=== PATIENT | female | born 1965 | race African-American/Black ===

== ENCOUNTER 2018-05-24 13:33 | Inpatient (IN) | payer MEDICARE, MEDICAID ==
[~2018-05-24] VITALS: Ht 162.6 cm; Wt 64.9 kg
--- NOTE | ~2018-05-24 | EC ---
PATIENT:LAITH STEARNS DATE OF SERVICE: 05/24/18 SEX: F MEDICAL RECORD: [id number] DATE OF : 67 LOCATION:D.[id number] AGE OF PATIENT: 52 ADMISSION DATE: 05/24/18 REFERRING PHYSICIAN: INTERPRETING PHYSICIAN: WALLY SALCEDO MD ECHOCARDIOGRAM REPORT ECHO CHARGES 4 ECHO COMPLETE Date: 05/26/18 CLINICAL DIAGNOSIS: ASSESS FOR SBE ECHOCARDIOGRAPHIC MEASUREMENTS (adult normal given) AC root (d.<3.7cm) 3.1 cm LV Septum d (<1.2 cm> 1.8 cm Valve Excursion 1.0 cm LV Septum (systole) 2.1 cm Left Atria (s.<4.0cm> 4.4 cm LVPW d(<1.2cm) 1.7 cm RV (d.<2.3cm) 4.5 cm LVPW (sytole) 1.9 cm LV diastole(<5.6CM) 5.6 cm MV E-F(>70mm/sec) cm LV systole 3.3 cm LVOT Diameter 2.0 cm MV exc.(>10mm) 1.6 cm Est.ejection fraction (50-75%) % DOPPLER: LVIT cm/sec A 89.0 cm/sec E 155 cm/sec LA cm/sec RVSP 51 mmHg LVOT 138 cm/sec AOP1/2T m/s Asc. Ao 257 cm/sec RVOT 107 cm/sec RA cm/sec PA 197 cm/sec AV Gradient Peak 26.41mmHg AV Mean 15.11mmHg AV Area 1.8 cm MV Gradient Peak 15.50mmHg MV Mean 5.46 mmHg MV Area cm COMMENTS: Puzzle Assembler: Reagan CORRIGAN Health Information Tech: 1 Dr. Salcedo TAPE# PACS Pericardial Effusion N DATE OF SERVICE: 05/26/2018 ECHOCARDIOGRAM FINDINGS: 1. Left ventricular chamber size is within normal limits. Left ventricular systolic function is normal. Overall ejection fraction estimated at 55% to 60%. 2. Left atrium is enlarged at 4.4 cm. Right atrium and right ventricular chamber sizes are mildly dilated. 3. 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 The tricuspid valve is as well replaced with a prosthesis that appears to be a tissue valve with normal structure and function in this position. 4. Aortic valve demonstrates mild calcific aortic stenosis, valve area calculates 1.8 cm-squared, gradient of 26 mm across the valve. 5. Doppler interrogation reveals elsewise mild mitral regurgitation, moderate tricuspid regurgitation, no other valvular insufficiency or stenosis. Pulmonary systolic pressure is estimated at 51 mmHg. 6. There is an echogenic structure in the right atrium. This appears to be a central line, appears to have a large thrombus burden on the catheter itself. 7. No evidence of pericardial effusion or left ventricular thrombus. TRANSINT:[id number] Voice Confirmation ID: [id number] DOCUMENT ID: [id number] WALLY SALCEDO MD at 1950 CC: [id number] DICTATION DATE: 05/26/18 1616 PILOT CAN ROUTER: 05/26/18 1714 ADM IN [facility] [address] [id number]
--- NOTE | ~2018-05-24 | OP ---
PATIENT NAME: LAITH SALAS MEDICAL RECORD: [id number] :67 LOCATION:D.M2 [id number] ADMISSION DATE:05/24/18 SURGEON: JAZIEL CHOWDHURY MD DATE OF OPERATION: 05/25/2018 She was an inpatient when she was operated on 05/25/2018. This is dictated on 05/30/2018. REFERRING PHYSICIAN: Dr. Crawford PREOPERATIVE DIAGNOSIS: Possibly infected dialysis access HeRO graft with possible infected pseudoaneurysm. ADDITIONAL DIAGNOSIS: Multiple central venous stenoses. OPERATION PERFORMED: Ultrasound-guided access via the left internal jugular vein and performance of a superior vena cavogram and insertion of an Arrow tunneled hemodialysis catheter into the right atrium. PREOPERATIVE NOTE: Ms. Salas is a 52-year-old female with end-stage renal disease, who has had a HeRO AV graft in the right upper extremity now for several years. She has recently been treated at various other hospitals for "infection and has complained for the last 2-3 weeks of pain and soreness along the course of her AV graft and about a week ago developed a mass in the region of the deltopectoral groove, which is not pulsatile but may represent a pseudoaneurysm. At any rate, the dialysis unit in [place] where she dialyzes was hesitant to use her graft after that and she was sent here. She actually presented via the Emergency Room more or less unannounced. Her HeRo graft seems to be patent, but there is great concern that it may be infected and so she is brought to the operating room to place a tunneled catheter to give us a safe dialysis access before further interventions. Under general anesthesia, the patient was prepped and draped in sterile manner. She was examined with ultrasound and I found the left internal jugular vein to be of normal caliber and fully compressible. No filling defects. I made an incision at the base of the neck and accessed the left internal jugular and under ultrasound guidance, I inserted a needle and then a guidewire into the left internal jugular vein. Because the patient has a HeRO graft on the right, which passes through the superior vena cava and into the right atrium and because she has a history of multiple central vein stenoses, I performed a superior vena cavogram. This revealed patency of the left internal jugular and brachial cephalic vein with near occlusion of the superior vena cava. I was able though then to pass a Glidewire alongside the HeRO graft and then to the right atrium and inferior vena cava. I chose a single access catheter, not a split catheter and this was inserted through a separate incision site and a subcutaneous tunnel and brought up to the cervical incision. Dilators were passed over the initial wire and subsequently a peel-away introducer and the catheter inserted. I found that I could not advance the catheter's suitable distance into the right atrium. I then used an Amplatz Super Stiff wire through a new catheter and with that in place was able to straighten the catheter and advance it into the right atrium into a good position. Both lumens of that catheter were then accessed and free return of blood confirmed. They were then heparin locked, clamped and capped and the cervical incision closed with interrupted inverted 3-0 Vicryl and the catheter sutured to the skin with 2-0 Prolene and sterile dressings applied. OPERATIVE REPORT [id number] LAITH SALAS TRANSINT:[id number] Voice Confirmation ID: [id number] DOCUMENT ID: [id number] JAZIEL CHOWDHURY MD at 1747 CC: [id number] DICTATION DATE: 05/30/18 1021 CYBER ANALYST: 05/30/18 1100 ADM IN [facility] [address] [place] [address]
[~2018-05-24 13:33] MED LIST: BYSTOLIC10 MG; BYSTOLIC10 MG PO; CATAPRES0.3 MG PO; HYDRALAZINE HCL25 MG PO; LEXAPRO10 MG; LEXAPRO10 MG PO; LONITEN2.5 MG PO; OMEPRAZOLE40 MG PO
[2018-05-24 16:39] LABS: BASOPHILS 0.7 % (0-2); HEMATOCRIT 28.9 % (36.0-48.0); LYMPHOCYTES 39.9 % (15-50); MCHC 31.1 g/dL (31.0-37.0); MCV 99.7 fL (80.0-100.0); MEAN PLATELET VOLUME 10.6 fL (7.4-10.4); MONOCYTES 4.6 % (2-11); NEUTROPHILS 51.8 % (40-80); PLATELET COUNT 71 10x3/uL (130-400); RDW 14.8 % (11.5-14.5)
[2018-05-24 16:45] LABS: INR 1.25 (0.85-1.17); PROTIME 15.2 SECONDS (11.6-15.0)
[2018-05-24 17:12] LABS: ALBUMIN 3.6 g/dL (3.4-5.0); ANION GAP 16.4 mmol/L (8-16); BILIRUBIN - TOTAL 1.03 mg/dL (0.2-1.3); CALCIUM 8.8 mg/dL (8.5-10.1); CREATININE - SERUM 11.1 mg/dL (0.6-1.3); POTASSIUM - SERUM 5.4 mmol/L (3.5-5.1); PROTEIN - SERUM 7.1 g/dL (6.4-8.2)
[2018-05-24 17:36] LABS: PLATELET ESTIMATE DECREASED
[2018-05-24 20:48] VITALS: BP 194/83; BMI 27.8
[2018-05-25 05:58] VITALS: BP 209/85
[2018-05-25 06:10] LABS: HEMOGLOBIN 8.3 g/dL (12-16); MCH 31.4 pg (26.0-34.0); MCHC 31.9 g/dL (31.0-37.0); MCV 98.5 fL (80.0-100.0); PLATELET COUNT 64 10x3/uL (130-400); RBC 2.64 10x6/uL (4.00-5.40); RDW 14.8 % (11.5-14.5); WBC 2.8 10x3/uL (4.8-10.8)
[2018-05-25 06:41] LABS: ANION GAP 14.8 mmol/L (8-16); BILIRUBIN - TOTAL 0.86 mg/dL (0.2-1.3); CALCIUM 8.3 mg/dL (8.5-10.1); CARBON DIOXIDE 26.3 mmol/L (21.0-32.0); CREATININE - SERUM 11.9 mg/dL (0.6-1.3); MAGNESIUM - SERUM 2.2 mg/dL (1.8-2.4); POTASSIUM - SERUM 5.1 mmol/L (3.5-5.1); PROTEIN - SERUM 6.3 g/dL (6.4-8.2)
[2018-05-25 07:53] LABS: EOSINOPHILS 9 % (0-7); LYMPHOCYTES 38 % (15-50); MONOCYTES 6 % (2-11); NEUTROPHILS 46 % (40-80); PLATELET ESTIMATE DECREASED
[2018-05-25 08:23] VITALS: BP 223/86
[2018-05-25 11:30] VITALS: BP 126/78
[2018-05-25 14:33] VITALS: BMI 27.8
[2018-05-25 15:30] VITALS: BP 237/97
[2018-05-25 18:48] VITALS: BP 182/83
[2018-05-26 05:14] VITALS: BP 169/74
[2018-05-26 09:30] VITALS: BP 186/71
[2018-05-26 12:34] VITALS: BP 159/79
[2018-05-26 18:35] VITALS: BP 157/76
[2018-05-26 21:05] VITALS: BP 182/77
[2018-05-27 05:07] VITALS: BP 176/66
[2018-05-27 06:01] LABS: % SATURATION 92 % (15-55); IRON 75 ug/dl (35-150); TOTAL IRON BIND CAPACITY 81 ug/dl (260-445)
[2018-05-27 06:07] LABS: UNSAT IRON BIND CAPACITY 6 ug/dl (150-375)
[2018-05-27 06:43] LABS: ALBUMIN 2.9 g/dL (3.4-5.0); BILIRUBIN - DIRECT 0.23 mg/dL (0.00-0.30); BILIRUBIN - INDIRECT 0.47 mg/dL (0.00-1.00); BILIRUBIN - TOTAL 0.7 mg/dL (0.2-1.3); PROTEIN - SERUM 6.3 g/dL (6.4-8.2)
[2018-05-27 08:44] VITALS: BP 186/84
[2018-05-27 12:00] LABS: HEMATOCRIT 23.8 % (36.0-48.0); HEMOGLOBIN 7.6 g/dL (12-16); MCH 31.5 pg (26.0-34.0); MCHC 31.9 g/dL (31.0-37.0); MCV 98.8 fL (80.0-100.0); MEAN PLATELET VOLUME 11.1 fL (7.4-10.4); RBC 2.41 10x6/uL (4.00-5.40); WBC 3.1 10x3/uL (4.8-10.8)
[2018-05-27 12:04] LABS: APTT 37.6 SECONDS (22.8-39.4); INR 1.15 (0.85-1.17); PROTIME 14.3 SECONDS (11.6-15.0)
[2018-05-27 18:09] VITALS: BP 131/106
[2018-05-27 21:15] VITALS: BP 124/100
[2018-05-28 00:54] VITALS: BP 138/84
[2018-05-28 05:04] VITALS: BP 148/56
[2018-05-28 07:11] LABS: BASOPHILS 0.3 % (0-2); EOSINOPHILS 4.8 % (0-7); HEMATOCRIT 26.7 % (36.0-48.0); HEMOGLOBIN 8.3 g/dL (12-16); MCH 30.7 pg (26.0-34.0); MCHC 31.1 g/dL (31.0-37.0); MCV 98.9 fL (80.0-100.0); MEAN PLATELET VOLUME 11.2 fL (7.4-10.4); MONOCYTES 9.7 % (2-11); NEUTROPHILS 49.2 % (40-80); PLATELET COUNT 65 10x3/uL (130-400); RDW 14.3 % (11.5-14.5); WBC 2.9 10x3/uL (4.8-10.8)
[2018-05-28 07:23] LABS: FOLATE (FOLIC ACID) - SERUM 5.3 ng/mL (>3.0)
[2018-05-28 07:26] LABS: ANION GAP 11.5 mmol/L (8-16); BILIRUBIN - TOTAL 0.76 mg/dL (0.2-1.3); CALCIUM 8.6 mg/dL (8.5-10.1); CARBON DIOXIDE 29.6 mmol/L (21.0-32.0); CREATININE - SERUM 7.4 mg/dL (0.6-1.3); POTASSIUM - SERUM 4.1 mmol/L (3.5-5.1); PROTEIN - SERUM 6.6 g/dL (6.4-8.2)
[2018-05-28 08:46] VITALS: BP 84/70
[2018-05-28 16:36] LABS: BASOPHILS 0.4 % (0-2); EOSINOPHILS 3.2 % (0-7); HEMATOCRIT 23.3 % (36.0-48.0); LYMPHOCYTES 32.3 % (15-50); MCHC 31.8 g/dL (31.0-37.0); MCV 97.5 fL (80.0-100.0); MEAN PLATELET VOLUME 10.9 fL (7.4-10.4); MONOCYTES 10.5 % (2-11); NEUTROPHILS 53.6 % (40-80); PLATELET COUNT 62 10x3/uL (130-400); RBC 2.39 10x6/uL (4.00-5.40); RDW 14.1 % (11.5-14.5); WBC 2.9 10x3/uL (4.8-10.8)
[2018-05-28 16:37] LABS: HEMOGLOBIN 7.4 g/dL (12-16)
[2018-05-28 16:38] VITALS: BP 179/74
[2018-05-28 16:57] LABS: ANION GAP 13.7 mmol/L (8-16); CALCIUM 8.5 mg/dL (8.5-10.1); CARBON DIOXIDE 28.3 mmol/L (21.0-32.0); CREATININE - SERUM 8.1 mg/dL (0.6-1.3)
[2018-05-28 18:09] LABS: BASOPHILS 0.3 % (0-2); EOSINOPHILS 3.1 % (0-7); HEMATOCRIT 22.3 % (36.0-48.0); LYMPHOCYTES 27.3 % (15-50); MCH 31.1 pg (26.0-34.0); MCHC 31.8 g/dL (31.0-37.0); MCV 97.8 fL (80.0-100.0); MEAN PLATELET VOLUME 9.1 fL (7.4-10.4); NEUTROPHILS 55.3 % (40-80); RBC 2.28 10x6/uL (4.00-5.40); RDW 14.1 % (11.5-14.5); WBC 2.9 10x3/uL (4.8-10.8)
[2018-05-28 18:33] LABS: ANION GAP 10.8 mmol/L (8-16); CALCIUM 8.6 mg/dL (8.5-10.1); CARBON DIOXIDE 30.2 mmol/L (21.0-32.0); CREATININE - SERUM 8.2 mg/dL (0.6-1.3); HEMOGLOBIN 7.1 g/dL (12-16); PLATELET COUNT 80 10x3/uL (130-400)
[2018-05-29] VITALS: BP 214/83
[2018-05-29 03:23] LABS: BASOPHILS 0.3 % (0-2); EOSINOPHILS 3.5 % (0-7); HEMATOCRIT 25.4 % (36.0-48.0); HEMOGLOBIN 8.2 g/dL (12-16); IMMATURE GRANULOCYTES 0.3 % (0-5); LYMPHOCYTES 32.3 % (15-50); MCH 30.4 pg (26.0-34.0); MCHC 32.3 g/dL (31.0-37.0); MEAN PLATELET VOLUME 9.5 fL (7.4-10.4); MONOCYTES 8.3 % (2-11); NEUTROPHILS 55.3 % (40-80); PLATELET COUNT 73 10x3/uL (130-400); RDW 17.4 % (11.5-14.5); WBC 3.1 10x3/uL (4.8-10.8)
[2018-05-29 03:25] LABS: MCV 94.1 fL (80.0-100.0)
[2018-05-29 03:37] LABS: ANION GAP 9.8 mmol/L (8-16); BILIRUBIN - TOTAL 1.2 mg/dL (0.2-1.3); CALCIUM 8.7 mg/dL (8.5-10.1); CREATININE - SERUM 8.8 mg/dL (0.6-1.3); POTASSIUM - SERUM 3.8 mmol/L (3.5-5.1); PROTEIN - SERUM 6.5 g/dL (6.4-8.2)
[2018-05-29 04:00] VITALS: BP 236/87
[2018-05-29 06:00] VITALS: BP 236/87
[2018-05-29 15:08] LABS: TRANSFERRIN 90 mg/dL (200-370)
[2018-05-29 20:00] VITALS: BP 227/94
[2018-05-30 00:07] VITALS: BP 215/61
[2018-05-30 04:00] VITALS: BP 216/70
[2018-05-30 04:41] LABS: BASOPHILS 0.3 % (0-2); EOSINOPHILS 6.3 % (0-7); HEMATOCRIT 25.5 % (36.0-48.0); HEMOGLOBIN 8.1 g/dL (12-16); IMMATURE GRANULOCYTES 0.3 % (0-5); LYMPHOCYTES 35.1 % (15-50); MCH 29.7 pg (26.0-34.0); MCHC 31.8 g/dL (31.0-37.0); MCV 93.4 fL (80.0-100.0); MONOCYTES 8.5 % (2-11); NEUTROPHILS 49.5 % (40-80); PLATELET COUNT 81 10x3/uL (130-400); RBC 2.73 10x6/uL (4.00-5.40); RDW 16.9 % (11.5-14.5); WBC 3.2 10x3/uL (4.8-10.8)
[2018-05-30 04:57] LABS: ALBUMIN 2.8 g/dL (3.4-5.0); BILIRUBIN - TOTAL 0.75 mg/dL (0.2-1.3); CALCIUM 8.5 mg/dL (8.5-10.1); CARBON DIOXIDE 28.9 mmol/L (21.0-32.0); CREATININE - SERUM 10.4 mg/dL (0.6-1.3); POTASSIUM - SERUM 3.9 mmol/L (3.5-5.1); PROTEIN - SERUM 6.3 g/dL (6.4-8.2)
[2018-05-30 09:21] VITALS: BP 226/110
[2018-05-30 16:35] VITALS: BP 182/73
[2018-05-30 16:58] VITALS: Ht 162.6 cm; Wt 64.9 kg
[2018-05-30 19:34] LABS: INR 1.06 (0.85-1.17); PROTIME 13.4 SECONDS (11.6-15.0)
[2018-05-30 20:00] VITALS: BP 182/73
[2018-05-31 00:04] VITALS: BP 173/50
[2018-05-31 03:11] LABS: HEP B CORE AB TOTAL Negative (Negative); HEPATITIS C ANTIBODY 0.1 (0.0-0.9)
[2018-05-31 04:00] VITALS: BP 175/72
[2018-05-31 04:52] LABS: BASOPHILS 0.3 % (0-2); EOSINOPHILS 6.3 % (0-7); HEMATOCRIT 23.5 % (36.0-48.0); HEMOGLOBIN 7.6 g/dL (12-16); LYMPHOCYTES 32.9 % (15-50); MCH 30.3 pg (26.0-34.0); MCHC 32.3 g/dL (31.0-37.0); MCV 93.6 fL (80.0-100.0); MEAN PLATELET VOLUME 10.9 fL (7.4-10.4); MONOCYTES 10.3 % (2-11); NEUTROPHILS 50.2 % (40-80); PLATELET COUNT 80 10x3/uL (130-400); RBC 2.51 10x6/uL (4.00-5.40); RDW 16.7 % (11.5-14.5); WBC 3.2 10x3/uL (4.8-10.8)
[2018-05-31 05:20] LABS: ALBUMIN 2.9 g/dL (3.4-5.0); ANION GAP 10.4 mmol/L (8-16); BILIRUBIN - TOTAL 0.71 mg/dL (0.2-1.3); CALCIUM 8.7 mg/dL (8.5-10.1); CARBON DIOXIDE 30.2 mmol/L (21.0-32.0); CREATININE - SERUM 8.2 mg/dL (0.6-1.3); POTASSIUM - SERUM 3.6 mmol/L (3.5-5.1); PROTEIN - SERUM 6.5 g/dL (6.4-8.2)
[2018-05-31 07:40] VITALS: BP 177/61
[2018-05-31 11:37] VITALS: BP 167/66
[2018-05-31 15:16] VITALS: BP 118/58
[2018-05-31 21:00] VITALS: BP 184/72
[2018-06-01] VITALS (7 sets, daily range): BP systolic 158–212; BP diastolic 57–89
[2018-06-01 05:03] LABS: BASOPHILS 0.7 % (0-2); EOSINOPHILS 5.2 % (0-7); HEMATOCRIT 22.2 % (36.0-48.0); LYMPHOCYTES 37.2 % (15-50); MCH 30.3 pg (26.0-34.0); MCV 94.9 fL (80.0-100.0); MEAN PLATELET VOLUME 10.4 fL (7.4-10.4); MONOCYTES 10.1 % (2-11); NEUTROPHILS 46.8 % (40-80); PLATELET COUNT 77 10x3/uL (130-400); RBC 2.34 10x6/uL (4.00-5.40); RDW 16.5 % (11.5-14.5); WBC 2.9 10x3/uL (4.8-10.8)
[2018-06-01 05:26] LABS: ALBUMIN 2.9 g/dL (3.4-5.0); ANION GAP 13.9 mmol/L (8-16); BILIRUBIN - TOTAL 0.63 mg/dL (0.2-1.3); CALCIUM 8.8 mg/dL (8.5-10.1); CARBON DIOXIDE 28.7 mmol/L (21.0-32.0); CREATININE - SERUM 9.8 mg/dL (0.6-1.3); POTASSIUM - SERUM 3.6 mmol/L (3.5-5.1); PROTEIN - SERUM 6.3 g/dL (6.4-8.2)
[2018-06-01 05:32] LABS: HEMOGLOBIN 7.1 g/dL (12-16)
[2018-06-02] VITALS (15 sets, daily range): BP systolic 118–195; BP diastolic 66–91
[2018-06-02 05:39] LABS: BASOPHILS 0.6 % (0-2); EOSINOPHILS 5.3 % (0-7); IMMATURE GRANULOCYTES 0.3 % (0-5); MCH 29.8 pg (26.0-34.0); MCHC 32.8 g/dL (31.0-37.0); MEAN PLATELET VOLUME 10.7 fL (7.4-10.4); MONOCYTES 12.2 % (2-11); NEUTROPHILS 51.6 % (40-80); PLATELET COUNT 76 10x3/uL (130-400); RDW 17.2 % (11.5-14.5); WBC 3.4 10x3/uL (4.8-10.8)
[2018-06-02 05:52] LABS: HEMOGLOBIN 9.5 g/dL (12-16); MCV 90.9 fL (80.0-100.0); RBC 3.19 10x6/uL (4.00-5.40)
[2018-06-02 06:15] LABS: HELICOBACTER PYLORI IGG POSITIVE (NEGATIVE)
[2018-06-02 06:24] LABS: ALBUMIN 2.9 g/dL (3.4-5.0); ANION GAP 13.2 mmol/L (8-16); BILIRUBIN - TOTAL 1.18 mg/dL (0.2-1.3); CALCIUM 8.8 mg/dL (8.5-10.1); CARBON DIOXIDE 30.2 mmol/L (21.0-32.0); POTASSIUM - SERUM 3.4 mmol/L (3.5-5.1); PROTEIN - SERUM 6.6 g/dL (6.4-8.2)
[2018-06-02 06:33] LABS: CREATININE - SERUM 6.8 mg/dL (0.6-1.3)
[2018-06-03 02:28] LABS: BASOPHILS 0.9 % (0-2); EOSINOPHILS 6.7 % (0-7); HEMOGLOBIN 9.8 g/dL (12-16); LYMPHOCYTES 33.3 % (15-50); MCH 29.7 pg (26.0-34.0); MCHC 32.7 g/dL (31.0-37.0); MCV 90.9 fL (80.0-100.0); MEAN PLATELET VOLUME 10.8 fL (7.4-10.4); MONOCYTES 8.8 % (2-11); NEUTROPHILS 50.3 % (40-80); PLATELET COUNT 75 10x3/uL (130-400); RDW 16.9 % (11.5-14.5); WBC 3.3 10x3/uL (4.8-10.8)
[2018-06-03 02:41] LABS: ANION GAP 12.8 mmol/L (8-16); BILIRUBIN - TOTAL 0.98 mg/dL (0.2-1.3); CALCIUM 9.2 mg/dL (8.5-10.1); CARBON DIOXIDE 29.8 mmol/L (21.0-32.0); CREATININE - SERUM 8.3 mg/dL (0.6-1.3); POTASSIUM - SERUM 3.6 mmol/L (3.5-5.1); PROTEIN - SERUM 6.8 g/dL (6.4-8.2)
[2018-06-03 06:31] VITALS: BP 198/72
[2018-06-03 07:59] VITALS: BP 124/64
[2018-06-03 15:12] VITALS: BP 175/67
[2018-06-03 22:45] VITALS: BP 150/70
[2018-06-04 00:59] VITALS: BP 126/58
[2018-06-04 01:19] LABS: HEMATOCRIT 29.9 % (36.0-48.0); HEMOGLOBIN 9.7 g/dL (12-16); MCH 29.6 pg (26.0-34.0); MCHC 32.4 g/dL (31.0-37.0); MCV 91.2 fL (80.0-100.0); MEAN PLATELET VOLUME 10.7 fL (7.4-10.4); RBC 3.28 10x6/uL (4.00-5.40); RDW 16.4 % (11.5-14.5); WBC 3.5 10x3/uL (4.8-10.8)
[2018-06-04 07:57] VITALS: BP 107/59
[2018-06-04 11:59] VITALS: BP 114/65
[2018-06-04 15:12] VITALS: BP 109/49
[2018-06-04 20:30] VITALS: BP 143/58
[2018-06-05 08:20] VITALS: BP 157/77
[2018-06-05] MEDS ORDERED: HYDRALAZINE HCL25 MG PO (09:25)
[2018-06-05] MEDS ORDERED: FLORAJEN3 CAPS460 MG PO (09:26)
[2018-06-05] MEDS ORDERED: RENAGEL800 MG PO (09:26)
[2018-06-05] MEDS ORDERED: ELIQUIS2.5 MG PO (09:27)
[2018-06-05] MEDS ORDERED: PROTONIX40 MG PO (10:04)
[2018-06-05] MEDS ORDERED: BIAXIN125 MG/5 M PO (10:04)
[2018-06-05] MEDS ORDERED: AMOXIL250 M1 PO (10:04)
[2018-06-05 11:36] VITALS: BP 141/70
[2018-06-08 17:12] LABS: OVA + PARASITE EXAM Final report (())
== END 2018-06-05 14:23 | disposition home or self-care (01) | DRG 314 ==
LOC: D.ER 13:33 → D.MS 17:32 → D.EDHOLD 17:32 → D.M2 17:32 → D.MS 18:16 → D.M2 05-28 20:48
PROVIDERS: Family Medicine; Internal Medicine Gastroenterology; Internal Medicine Nephrology; Surgery
PROC: 0JH63XZ Insertion of Tunneled Vascular Access Device into Chest Subcutaneous Tissue and Fascia, Percutaneous Approach (ICD-10-PCS; 2018-05-25)
PROC: 02H633Z Insertion of Infusion Device into Right Atrium, Percutaneous Approach (ICD-10-PCS; 2018-05-25)
PROC: B244ZZZ Ultrasonography of Right Heart (ICD-10-PCS; 2018-05-25)
PROC: B5181ZZ Fluoroscopy of Superior Vena Cava using Low Osmolar Contrast (ICD-10-PCS; principal; 2018-05-25 12:00)
PROC: 05HC33Z Insertion of Infusion Device into Left Basilic Vein, Percutaneous Approach (ICD-10-PCS; 2018-05-27)
PROC: B54NZZA Ultrasonography of Left Upper Extremity Veins, Guidance (ICD-10-PCS; 2018-05-27)
PROC: 0DJ08ZZ Inspection of Upper Intestinal Tract, Via Natural or Artificial Opening Endoscopic (ICD-10-PCS; 2018-06-01)
DX: T82.868A Thrombosis due to vascular prosthetic devices, implants and grafts, initial encounter (principal); N18.6 End stage renal disease; I82.A11 Acute embolism and thrombosis of right axillary vein; I97.618 Postprocedural hemorrhage of a circulatory system organ or structure following other circulatory system procedure; D61.818 Other pancytopenia; C85.94 Non-Hodgkin lymphoma, unspecified, lymph nodes of axilla and upper limb; I12.0 Hypertensive chronic kidney disease with stage 5 chronic kidney disease or end stage renal disease; K22.10 Ulcer of esophagus without bleeding; Y83.8 Other surgical procedures as the cause of abnormal reaction of the patient, or of later complication, without mention of misadventure at the time of the procedure; I51.3 Intracardiac thrombosis, not elsewhere classified; B96.81 Helicobacter pylori [H. pylori] as the cause of diseases classified elsewhere; K29.00 Acute gastritis without bleeding; K44.9 Diaphragmatic hernia without obstruction or gangrene

== ENCOUNTER 2018-07-05 06:39 | Day surgery (SDC) | payer MEDICARE, MEDICAID ==
[~2018-07-05] VITALS: Ht 162.6 cm; Wt 70.8 kg
--- NOTE | ~2018-07-05 | OP ---
PATIENT NAME: LAITH STEARNS MEDICAL RECORD: [id number] :67 LOCATION:[facility] ADMISSION DATE: SURGEON: JAZIEL CHOWDHURY MD DATE OF OPERATION: 07/05/2018 REFERRING PHYSICIAN: Dr. Bateman. PREOPERATIVE DIAGNOSES: Right axillary and mediastinal lymphadenopathy and possible pseudoaneurysmal deterioration of right upper extremity HeRO arteriovenous graft. ADDITIONAL DIAGNOSES: End-stage renal disease on hemodialysis, superior vena cava syndrome, and dependence on hemodialysis. ANESTHESIA: General per [employer]. PREOPERATIVE NOTE: Ms. Stearns is a 52-year-old female with end-stage renal disease, on chronic hemodialysis. She has had numerous dialysis accesses in the past and has developed a central vein stenosis as a result. She has been dialyzing for some time now successfully with a right upper extremity HeRO graft. She is still dialyzing with that HeRO. She recently had symptoms of fever and weight loss and was found to have lymphadenopathy in the axilla and in the mediastinum and a mass was palpable around the connector of the HeRO graft. Believing that she had an infected access, I placed a tunneled dialysis catheter via the left internal jugular vein and that precipitated worsening superior vena cava syndrome symptoms and unfortunately she developed a clot around the end of that catheter and that has postponed or forced postponement of removal of that device. At this time, actually her HeRO is working well. She does, however, have considerable thrombophilia and for this procedure has been off her Eliquis now for a couple of days. She is brought to the hospital today for a right axillary lymph node biopsy and I plan a fistulogram to see if there is really a problem with the HeRO graft. DESCRIPTION OF THE PROCEDURE: The patient was administered general anesthesia and then prepped and draped in the sterile manner. I accessed her HeRO graft near the apex of the loop in the distal arm and used micropuncture technique and this led up to placement of a 6-English introducer. Contrast injection demonstrated no aneurysmal deterioration and no stenoses, but there was what appeared to be some clot developing near the connector itself and so I have used a 6-mm angioplasty balloon to macerate that thrombus, I think that thrombus has probably formed since her Eliquis was discontinued. Retrograde images showed no problems with JA or arterial anastomosis and a normal brachial artery in the region of that anastomosis. The port was removed and hemostasis obtained with a [id number] 4-0 Prolene suture. A sterile dressing was applied. The axilla was then approached through a transverse incision. I noted at the beginning of the procedure on palpation that the lymphadenopathy in the axilla had receded considerably since she was hospitalized. I did locate several enlarged grayish colored, but fairly soft lymph nodes. These were excised with blunt and sharp dissection and a minimum use of electrocautery. Multiple Vicryl ties were used. The specimens were sent for permanent section histology. Due to oversight, one was not sent for culture. OPERATIVE REPORT [id number] LAITH STEARNS The wound was irrigated with saline, it was drained with a 15-English round fluted drain sutured in place with 3-0 Vicryl. The wound was closed with interrupted inverted 3-0 Vicryl and skin closed with running intracuticular 4-0 Monocryl and Dermabond glue. The usual dressing of Maxorb Ag, Tegaderm, and Cavilon skin prep was applied and the patient was awakened and taken to the recovery room. Blood loss during the operation was minimal and unreplaced. Sponges, instruments, and needles were accounted for. One drain was used as I described. The surgical specimen consisted of the excised lymph nodes from the right axilla. PLAN: The patient will go home today with her SAMIR drain in place and arrangements made for home health to supervise her care at home. She will be returning to see me in my office next week. She is given a prescription for 10 tablets of [place] 5/325 one to two p.o. q.4-6 hours p.r.n. pain. She will continue her usual dialysis schedule and medications. She will resume her Eliquis p.o. tomorrow. TRANSINT:[id number] Voice Confirmation ID: [id number] DOCUMENT ID: [id number] JAZIEL CHOWDHURY MD CC: RENATA BATEMAN MD [id number] DICTATION DATE: 07/14/181526 DIRECTOR OF PLACEMENT: 07/14/181958 [facility] 07/05/18 [facility] [address] [place] [address]
[~2018-07-05 06:39] MED LIST changes: +AMOXIL250 M1 PO; +BIAXIN125 MG/5 M PO; +ELIQUIS2.5 MG PO; +FLORAJEN3 CAPS460 MG PO; +PROTONIX40 MG PO; +RENAGEL800 MG PO
[2018-07-05 07:10] LABS: BASOPHILS 0.6 % (0-2); EOSINOPHILS 4.3 % (0-7); HEMATOCRIT 30.5 % (36.0-48.0); HEMOGLOBIN 9.4 g/dL (12-16); LYMPHOCYTES 30.9 % (15-50); MCH 30.2 pg (26.0-34.0); MCHC 30.8 g/dL (31.0-37.0); MCV 98.1 fL (80.0-100.0); MEAN PLATELET VOLUME 11.2 fL (7.4-10.4); MONOCYTES 9.6 % (2-11); NEUTROPHILS 54.6 % (40-80); RBC 3.11 10x6/uL (4.00-5.40); RDW 17.2 % (11.5-14.5); WBC 3.2 10x3/uL (4.8-10.8)
[2018-07-05 07:21] LABS: APTT 38.6 SECONDS (22.8-39.4); INR 1.21 (0.85-1.17); PROTIME 14.9 SECONDS (11.6-15.0)
[2018-07-05 07:24] LABS: ANION GAP 18.2 mmol/L (8-16); CALCIUM 9.2 mg/dL (8.5-10.1); CARBON DIOXIDE 22.5 mmol/L (21.0-32.0); CREATININE - SERUM 7.8 mg/dL (0.6-1.3); POTASSIUM - SERUM 4.7 mmol/L (3.5-5.1)
[2018-07-05 07:27] LABS: PLATELET COUNT 96 10x3/uL (130-400)
[2018-07-05] MEDS ORDERED: LOVENOX30 MG/0.3 (07:56)
[2018-07-05] MEDS ORDERED: COZAAR100 MG (07:57)
[2018-07-05] MEDS ORDERED: OMEPRAZOLE40 MG (07:57)
[2018-07-05 08:19] VITALS: BP 217/97; Ht 162.6 cm; Wt 70.8 kg
[2018-07-05] MEDS ORDERED: FERRIC CITRATE210 MG PO (08:26)
[2018-07-05] MEDS ORDERED: APAP325 MG PO (08:27)
[2018-07-05] MEDS ORDERED: LONITEN2.5 MG PO (08:28)
[2018-07-05] MEDS ORDERED: ISOSORBIDE DINI30 MG PO (08:29)
== END 2018-07-05 21:00 | disposition home or self-care (01) ==
LOC: D.OPS 06:39 → D.M2 19:34 → D.OPS 21:00
PROVIDERS: Surgery
DX: T82.868A Thrombosis due to vascular prosthetic devices, implants and grafts, initial encounter (principal); I87.1 Compression of vein; Z01.812 Encounter for preprocedural laboratory examination; Z79.01 Long term (current) use of anticoagulants; D68.59 Other primary thrombophilia; Z94.0 Kidney transplant status